=== PATIENT | female | born 1975 | race Caucasian/White ===

== ENCOUNTER 2018-05-04 01:12 | Emergency (ER) | payer MEDICARE ==
[~2018-05-04] VITALS: Ht 165.1 cm; Wt 97.5 kg
--- NOTE | 2018-05-04 01:12 | NUR ---
PATIENT BIB BLS TO ER BED 4.
[2018-05-04 01:14] VITALS: BP 148/97
--- NOTE | 2018-05-04 01:15 | NUR ---
42 YO FEMALE BIBA FOR ALOC, PT WAS FOUND AT BUS STOP SITTING NEAR CURB. PT HAS HX OF SEIZURES AND TAKES KEPPRA. NKA. PT AOX2 FOLLOWING COMMANDS, AMB @ BEDSIDE. PT DENIES NUMBNESS/TINGLING. PT DENIES FEVER, CHILLS. LUNGS CLEAR EVEN UNLABORED, S1 S2. PT VOIDED CLEAR YELLOW URINE. NO S/S OF ACUTE DISTRESS NOTED. SKIN INTACT. PT CHANGED IN TO [facility], AND HELPED INTO ER YANELIS. WILL UPDATE ER MD. WILL CONTINUE TO OBSERVE.
[2018-05-04] MEDS ORDERED: KEP500 PO (01:23)
[2018-05-04 01:33] LABS: BASOPHILS # (AUTO) 0.1 K/uL (0.00-0.22); BASOPHILS % (AUTO) 0.9 % (0.0-2.0); EOSINOPHILS # (AUTO) 0.2 K/uL (0-0.4); EOSINOPHILS % (AUTO) 2.9 % (0.0-4.0); HEMATOCRIT 41.6 % (36-48); LYMPHOCYTES # (AUTO) 3.1 K/uL (2.5-16.5); LYMPHOCYTES % (AUTO) 39.4 % (20.5-51.1); MEAN CORPUSCULAR HEMOGLOBIN 31 pg (27-31); MEAN CORPUSCULAR HGB CONC 34 g/dL (33-37); MEAN CORPUSCULAR VOLUME 92.6 fL (80-94); MONOCYTES # (AUTO) 0.5 K/uL (0.8-1.0); MONOCYTES % (AUTO) 6.1 % (1.7-9.3); NEUTROPHILS % (AUTO) 50.7 % (42.2-75.2); PLATELET COUNT (AUTO) 310 K/uL (140-450); RED CELL DISTRIBUTION WIDTH 13.2 % (11.6-13.7); WHITE BLOOD COUNT (AUTO) 7.9 K/uL (4.8-10.8)
[2018-05-04 01:35] LABS: APPEARANCE,URINE CLEAR (CLEAR); COLOR,URINE YELLOW (YELLOW); PH,URINE 5.5 (5.0-9.0); UGLUCOSE NEGATIVE (NEGATIVE)
[2018-05-04 01:36] LABS: BILIRUBIN,URINE NEGATIVE (NEGATIVE); BLOOD, URINE TRACE (NEGATIVE); LEUKOCYTE ESTERASE ,URINE TRACE (NEGATIVE); NITRITE, URINE NEGATIVE (NEGATIVE)
--- NOTE | 2018-05-04 01:40 | NUR ---
PT C/O HEADACHE 10/04 WILL UPDATE ER MD WILL CONTINUE TO OBSERVE.
[2018-05-04 01:43] LABS: RBC,URINE 0-5 (RARE) /HPF (0-5)
[2018-05-04 01:47] LABS: ANION GAP 14.2 (8-16); CREATININE 0.9 mg/dL (0.6-1.3); POTASSIUM 3.2 mmol/L (3.5-5.1)
[2018-05-04 01:50] LABS: ALBUMIN 3.4 g/dL (3.4-5.0); TOTAL BILIRUBIN 0.3 mg/dL (0.0-1.0)
[2018-05-04 01:52] LABS: BARBITURATE, URINE NEGATIVE ng/ml (NEG <=200); BENZODIAZEPINE, URINE NEGATIVE ng/mL (NEG <=200); CANNABINOID, URINE NEGATIVE ng/mL (NEG <=50); COCAINE, URINE NEGATIVE ng/mL (NEG <=300); OPIATE, URINE NEGATIVE ng/mL (NEG <=2000); PHENCYCLIDINE SCREEN,URINE NEGATIVE ng/mL (NEG <=25)
[2018-05-04 02:02] LABS: PHENYTOIN (DILANTIN) 0.7 ug/ml (10.0-20.0)
--- NOTE | 2018-05-04 02:05 | NUR ---
PT HAD X2 EPISODES OF NAUSEA/VOMITING 100 ML DARK GREEN BILE FLUID NOTED.
[2018-05-04] MEDS ORDERED: IBUPROFEN 600 MG TAB PO ONE (02:10)
[2018-05-04] MEDS ORDERED: ONDANSETRON 4 MG/2 ML VIAL IVP ONE ×2 (02:10→02:50)
[2018-05-04] MEDS ORDERED: KETOROLAC 15 MG/ML VIAL IVP ONE (02:10)
[2018-05-04] MEDS ORDERED: POTASSIUM CHLORIDE 10 MEQ TABER PO ONE ×2 (02:10→02:35)
[2018-05-04] MEDS ORDERED: levETIRAcetam 500 MG TAB PO ONE (02:10)
[2018-05-04] MEDS ORDERED: NACL 0.9% 1,000 ML IV ONE (02:10)
[2018-05-04] MEDS ORDERED: levETIRAcetam 1,000 MG in NACL 0.9% 100 ML IV ONE (02:10)
--- NOTE | 2018-05-04 02:10 | NUR ---
Dr. Olson evaluating patient at bedside.
[2018-05-04] MEDS ORDERED: levETIRAcetam 100 MG/ML VIAL IV ONE ×2 (02:27→02:28)
--- NOTE | 2018-05-04 02:40 | NUR ---
PT TAKEN TO CT SCAN.
--- NOTE | 2018-05-04 02:48 | NUR ---
PT C/O NAUSEA PER [employer]INEER. UPDATED ER . X1 ZOFRAN ORDERED.
[2018-05-04] MEDS ORDERED: KCL 20 MEQ/WATER INJ PREMIX 200 ML IV ONE (02:50)
--- NOTE | 2018-05-04 02:57 | NUR ---
PT BACK FROM CT SCAN.
--- NOTE | 2018-05-04 03:02 | NUR ---
K RIDER STARTED INFUSING INTO R FA, NO ACUTE DISTRESS NOTED
[2018-05-04] MEDS ORDERED: LORazepam 2 MG/ML VIAL IVP ONE (03:20)
--- NOTE | 2018-05-04 04:13 | NUR ---
PT HAS EYES CLOSED, AROUSABLE, TOLERATING K RIDER IV NO ACUTE DRUG REACTION NOTED. WILL CONTINUE TO OBSERVE.
--- NOTE | 2018-05-04 05:07 | NUR ---
PT SITTING UP IN BED, VSS, NO ACUTE DISTRESS NOTED. SEIZURE PRECAUTIONS IN PLACE, WILL CONTINUE TO MONITOR.
[2018-05-04 05:35] VITALS: BP 118/67
--- NOTE | 2018-05-04 05:42 | NUR ---
Patient discharged with v/s stable. Written and verbal after care instructions given and explained. Patient alert, oriented and verbalized understanding of instructions. Ambulatory with steady gait. All questions addressed prior to discharge. ID band removed. Patient advised to follow up with PMD. Rx of MACRODANTIN given. Patient educated on indication of medication including possible reaction and side effects. Opportunity to ask questions provided and answered.
[2018-05-04] MEDS ORDERED: NITROFURANTOIN 100 MG CAP PO SCH ×2 (08:00)
== END 2018-05-04 05:42 | disposition home or self-care (01) ==
LOC: MED 01:12
DX: S00.03XA Contusion of scalp, initial encounter (principal); E87.6 Hypokalemia; N39.0 Urinary tract infection, site not specified; Z79.899 Other long term (current) drug therapy; W18.39XA Other fall on same level, initial encounter; Y93.89 Activity, other specified; Y92.89 Other specified places as the place of occurrence of the external cause; Y99.8 Other external cause status
CPT/HCPCS: 36415; 70450; 80053; 80185; 80305; 81001; 81025; 84484; 85025; 87086; 93005; 96361; 96365; 96375; 99284; J1885; J1953; J2060; J2405; J3480; J7030